=== PATIENT | female | born 1960 | race Caucasian/White ===

== ENCOUNTER 2018-08-19 09:37 | Emergency (ER) | payer BC, OTHER ==
[2018-08-19] MEDS ORDERED: MORPHINE SULFATE 10 MG/ML SOL IV PRN (09:44)
[2018-08-19] MEDS ORDERED: SODIUM CHLORIDE 0.9% FLUSH 10 ML SOL IV PRN (09:44)
[2018-08-19] MEDS ORDERED: NITROGLYCERIN 0.4 MG TAB SL PRN (09:44)
[2018-08-19 09:46] VITALS: TEMP 98.4
[2018-08-19] MEDS ORDERED: KETOROLAC TROMETHAMINE 30 MG/ML SOL IV ONE (09:46)
[2018-08-19] MEDS ORDERED: NITROGLYCERIN 0.4 MG TAB SL ONE (09:47)
[2018-08-19] MEDS ORDERED: MORPHINE SULFATE 10 MG/ML SOL ONE (09:53)
[2018-08-19 09:56] LABS: BASOPHILS % (AUTO) 1 % (0-3); EOSINOPHILS % (AUTO) 3 % (0-9); HEMATOCRIT 54 % (35-47); HEMOGLOBIN 17.4 gm/dl (12.0-15.5); LYMPHOCYTES % (AUTO) 23.4 % (10-50); MEAN CORPUSCULAR HEMOGLOBIN 29.1 pg (27.0-32.0); MEAN CORPUSCULAR HGB CONC 32.1 gm/dl (32.0-36.0); MEAN CORPUSCULAR VOLUME 91 fL (81-99); MONOCYTES % (AUTO) 7.4 % (0-12); NEUTROPHILS % (AUTO) 65.5 % (37-80)
[2018-08-19] MEDS ORDERED: LIDOCAINE HCL 2% (VISCOUS) 15 ML SOL MT ONE (10:06)
[2018-08-19] MEDS ORDERED: ALUMINUM/MAGNESIUM 30 ML SUS PO ONE (10:06)
[2018-08-19] MEDS ORDERED: ALUMINUM/MAGNESIUM 30 ML SUS ONE (10:08)
[2018-08-19] MEDS ORDERED: LIDOCAINE HCL 2% (VISCOUS) 15 ML SOL ONE (10:08)
[2018-08-19 10:15] LABS: BLOOD UREA NITROGEN 10 mg/dl (7-18); CALCIUM 9.2 mg/dl (8.5-10.1); CARBON DIOXIDE 30.9 mEq/L (21-32); CHLORIDE 100 mMol/L (98-107); CREATINE KINASE 62 U/L (26-192); CREATININE 0.99 mg/dl (0.60-1.00); GLUCOSE 130 mg/dl (74-106); POTASSIUM 3.9 mMol/L (3.5-5.1); SODIUM 139 mMol/L (136-145); TROP I < 0.017 ng/ml (0.000-0.056)
[2018-08-19] MEDS ORDERED: ACETAMINOPHEN 500 MG 500 MG TAB PO ONE (10:41)
[2018-08-19] MEDS ORDERED: HYDROCHLOROTHIAZIDE 25 MG TAB PO SCH (10:45)
[2018-08-19] MEDS ORDERED: ACETAMINOPHEN 500 MG 500 MG TAB ONE (10:50)
[2018-08-19] MEDS ORDERED: HYDROCHLOROTHIAZIDE 25 MG TAB ONE (10:51)
[2018-08-19 11:06] LABS: APPEARANCE,URINE Clear; BILIRUBIN,URINE NEGATIVE (NEGATIVE); COLOR,URINE Yellow; GLUCOSE, URINE (UA) NEGATIVE (NEGATIVE); KETONES,URINE NEGATIVE (NEGATIVE); LEUKOCYTE ESTERASE ,URINE 1+ (NEGATIVE); NITRATE,URINE NEGATIVE (NEGATIVE); OCCULT BLOOD,URINE TRACE INTACT (NEG-TRACE); UROBILINOGEN,URINE 0.2 (0.2-1.0 EU)
[2018-08-19 11:24] LABS: BACTERIA TRACE (< 1+); CRYSTALS NEGATIVE (0-3 AVE/HPF); EPITHELIAL CELLS 0-2 (SQUAMOUS)
[2018-08-19] MEDS ORDERED: SULFAMETHOXAZOLE/TRIMETHOPRI 800/160 MG PO ONE (11:34)
[2018-08-19 13:15] VITALS: BP 158/76; PULSE 64; RESP 14; O2SAT 93
== END 2018-08-19 11:50 | disposition home or self-care (01) ==
LOC: ED 09:37
DX: R07.89 Other chest pain (principal); I10 Essential (primary) hypertension; N39.0 Urinary tract infection, site not specified
CPT/HCPCS: 36415; 71045; 80048; 81001; 82550; 84484; 85025; 85610; 85730; 87088; 93005; 96374; 99284; J2270; A9270-GY

== ENCOUNTER 2018-10-22 08:48 | Day surgery (SDC) | payer OTHER ==
[~2018-10-22 08:48] MED LIST: LIDOCAINE HCL 1% MPF 30 SOL ONE; PROPOFOL 500 MG/50 ML EMU IV ONE
[2018-10-22 11:56] VITALS: RESP 20; TEMP 97.3
[2018-10-22 12:08] VITALS: BP 169/85; PULSE 66; O2SAT 91
== END 2018-10-22 12:22 | disposition home or self-care (01) ==
LOC: SURG 08:48
PROVIDERS: ATTEND Internal Medicine Gastroenterology
DX: Z12.11 Encounter for screening for malignant neoplasm of colon (principal); Z85.42 Personal history of malignant neoplasm of other parts of uterus; Z86.010 Personal history of colon polyps; D12.3 Benign neoplasm of transverse colon; K63.5 Polyp of colon; K57.32 Diverticulitis of large intestine without perforation or abscess without bleeding; K64.8 Other hemorrhoids
CPT/HCPCS: 99001; J2001; J2704